=== PATIENT | male | born 1950 | race Caucasian/White ===

== ENCOUNTER 2021-07-04 11:19 | Emergency (ER) | payer MEDICARE ==
[2021-07-04 11:39] LABS: BASOPHIL 0.6 % (0-2); EOSINOPHIL 1.3 % (0-7); HCT 44.2 % (42.0-52.0); HGB 14.8 g/dl (13.2-18.0); LYMPHOCYTE 38.7 % (15-48); MCH 30.5 pg (25.0-31.0); MCHC 33.5 g/dL (32.0-36.0); MCV 91.1 fL (78.0-100.0); MONOCYTE 7.5 % (0-12); MPV 10.2 fL (6.0-9.5); NEUTROPHIL 51.6 % (41-80); NRBC 0; PLT 203 K/uL (150-400); RBC 4.85 M/uL (4.70-6.00); WBC 8.8 K/uL (4.0-10.5)
[2021-07-04 11:52] LABS: INR 0.96 (0.9-1.2); PROTHROMBIN TIME 12.2 SECONDS (11.8-13.4); PTT 24.8 SECONDS (24.4-34.7)
[2021-07-04 11:58] LABS: ALBUMIN 4.3 g/dL (3.4-5.0); BILIRUBIN - TOTAL 0.4 mg/dL (0.2-1.0); BUN/CREAT RATIO (CALC) 20.5 RATIO; CREATININE 1.27 mg/dL (0.67-1.17); GLOBULIN (CALCULATION) 3.3 g/dL; POTASSIUM 4.1 mmol/L (3.5-5.1); TOTAL PROTEIN 7.6 g/dL (6.4-8.2)
== END 2021-07-04 12:11 | disposition other institution (70) ==
LOC: FER 11:19
PROVIDERS: Emergency Medicine
DX: I21.3 ST elevation (STEMI) myocardial infarction of unspecified site (principal)
CPT/HCPCS: 36415; 71045; 80053; 84484; 85025; 85610; 85730; 93005; J1644; J2270